=== PATIENT | female | born 1950 | race Caucasian/White ===

== ENCOUNTER → 2025-08-18 15:09 | Outpatient (REF) | payer MEDICARE, OTHER, SELFPAY | LOC: REG 15:09 | PROVIDERS: ATTENDING PHYSICIAN Nurse Practitioner Primary Care; FAMILY PHYSICIAN Internal Medicine Geriatric Medicine | DX: S99.922A Unspecified injury of left foot, initial encounter (principal) | CPT/HCPCS: 73660 ==

== ENCOUNTER → 2025-09-23 12:11 | Outpatient (REF) | payer MEDICARE, OTHER, SELFPAY | LOC: RAD 12:11 | PROVIDERS: ATTENDING PHYSICIAN Nurse Practitioner Primary Care | DX: R06.09 Other forms of dyspnea (principal); R53.83 Other fatigue; R93.89 Abnormal findings on diagnostic imaging of other specified body structures; R05.3 Chronic cough | CPT/HCPCS: 71260; Q9967 ==